=== PATIENT | female | born 1985 | race American Indian/Alaskan Native ===

== ENCOUNTER 2016-11-28 04:21 | Inpatient (IN) | payer MEDICAID ==
[2016-11-28] MEDS ORDERED: ePHEDrine SULFATE IV PRN (05:08)
[2016-11-28] MEDS ORDERED: BRETHINE IVP PRN (05:08)
[2016-11-28] MEDS ORDERED: MINERAL OIL PO PRN (05:08)
[2016-11-28] MEDS ORDERED: ZOFRAN IV PRN (05:08)
[2016-11-28] MEDS ORDERED: NARCAN 0.4 MG/1 ML IV PRN (05:08)
[2016-11-28] MEDS ORDERED: SUBLIMAZE IV PRN (05:08)
[2016-11-28] MEDS ORDERED: BRETHINE SUB-Q PRN (05:08)
--- NOTE | 2016-11-28 05:15 | History and Physical Report ---
History of Present Illness Date of examination: 11/28/16 Date of admission: 11/28/2016 Chief complaint: contractions and vaginal bleeding History of present illness: 31 yo , TAO 11/28/2016 (LMP), 40w0d, A positive, Rubella immune, GBS negative presents in active labor. 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 Anemia taking FeS04. 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 denies: abnormal PAP smear, chlamydia, gonorrhea, hepatitis B, hepatitis C, HIV, syphilis, trichomonas Family/Genetic History: none Social history: no significant social history, lives with family, full code. denies: smoking, alcohol abuse, prescription drug abuse, IV drug use - Obstetrical History Expected Date of Delivery: 11/28/16 Actual Gestation: 40 Week(s) 0 Day(s) : 6 Para: 5 Hx # Term Pregnancies: 5 Number of Pregnancies: 0 Spontaneous Abortions: 0 Induced : 0 Number of Living Children: 5 #1 Infant Gender: Male year: 2,007 Birthweight: 3.005 kg Method of Delivery: Vaginal Gestational age at delivery: 40 Complications: none #2 Gender: Female year: 2,009 Birthweight: 3.175 kg Method of Delivery: Vaginal Gestational age at delivery: 40 Complications: none #3 Gender: Female year: 2,013 Birthweight: 3.629 kg Method of Delivery: Vaginal Gestational age at delivery: 40 Complications: none #4 Gender: Female year: 2,014 Birthweight: 3.175 kg Method of Delivery: Vaginal Gestational age at delivery: 40 Complications: none #5 Infant Gender: Female year: 2,015 Birthweight: 3.175 kg Method of Delivery: Vaginal Gestational age at delivery: 40 Complications: none Medications and Allergies Allergies Allergy/AdvReac Type Severity Reaction Status Date / Time No Known Allergies Allergy Unverified 11/28/16 04:21 Review of Systems Eyes: normal appearance Cardiovascular: no chest pain, no shortness of breath Breasts: normal Gastrointestinal: no nausea, no vomiting, no diarrhea, no constipation Genitourinary: normal appearance, vaginal bleeding (Bloody show), contractions, no leakage of fluid, no genital sores Integumentary: no rash, no sores, no lesions - Vital Signs Vital signs: Vital Signs Pulse Pulse Ox 76 95 11/28/16 04:30 11/28/16 04:30 Temp Pulse Resp BP Pulse Ox 108 H 182/104 96 11/28/16 05:05 11/28/16 05:03 11/28/16 05:05 - Physical Exam Breasts: Positive: normal Cardiovascular: Regular rate Lungs: Positive: Normal air movement Abdomen: Positive: normal appearance Genitourinary (Female): Positive: normal external genitalia, normal perenium Vulva: both: normal Vagina: Positive: normal moisture Uterus: Positive: enlarged (gravid) Anus/Rectum: Positive: normal perianal skin Extremities: Positive: normal Deep Tendon Reflex Grade: Normal +2 - Obstetrical FHR: category 1 Uterine Contraction Monitor Mode: External Cervical Dilatation: 6 (per admitting RN) Cervical Effacement Percentage: 90 station: -2 Uterine Contraction Frequency (min): 2-3 Uterine Contraction Pattern: Regular Uterine Tone Measurement Phase: Resting Uterine Contraction Intensity: Moderate Results All other labs normal. Assessment and Plan A: Term IUP at 40w0d Late & limited care Iron deficiency Anemia HSV2 IgG Serology GBS negative Category 1 tracing Spontaneous labor Elevated blood pressure on admission P: Admit to L&D Routine and PIH labs May have IV pain med/epidural PRN Anticipate
[2016-11-28 05:32] LABS: Hematocrit 33.8 % (30.3-42.9); Hemoglobin 11.6 gm/dl (10.1-14.3); Mean Corpuscular HGB Conc 34 % (30-34); Mean Corpuscular Hemoglobin 28 pg (28-32); Mean Corpuscular Volume 82 fl (79-97); Platelet Count 200 K/mm3 (140-440); Red Blood Count 4.11 M/mm3 (3.65-5.03); Red Cell Distribution Width 15.9 % (13.2-15.2); White Blood Count 9.8 K/mm3 (4.5-11.0)
[2016-11-28] MEDS ORDERED: XYLOCAINE 2% INFILTRATI ONE (05:40)
[2016-11-28] MEDS: PITOCin/NS 20 UNIT/1000ML DRIP 1,000 ML IV SCH ×2 (05:49→07:05)
[2016-11-28] MEDS ORDERED: DULCOLAX PR PRN (05:58)
[2016-11-28] MEDS ORDERED: TYLENOL PO PRN (05:58)
[2016-11-28] MEDS ORDERED: MILK OF MAGNESIA PO PRN (05:58)
[2016-11-28] MEDS ORDERED: LANSINOH TP PRN (05:58)
[2016-11-28] MEDS ORDERED: DERMOPLAST TP PRN (05:58)
[2016-11-28] MEDS ORDERED: TUCKS PAD TP PRN (05:58)
[2016-11-28] MEDS ORDERED: BENADRYL PO PRN (05:58)
[2016-11-28] MEDS ORDERED: SODIUM CHLORIDE FLUSH SYRINGE 10 ML IV NR (06:00)
[2016-11-28] MEDS ORDERED: LACTATED RINGERS 1,000 ML IV SCH (06:00)
--- NOTE | 2016-11-28 06:07 | Procedure Note ---
OB Delivery Note - Delivery Date of Delivery: 11/28/16 (05:46) Surgeon: ELICEO DE ANDA (EVELYN) Estimated blood loss: 100cc - Vaginal Delivery presentation: vertex Delivery position: OA Intrapartum events: none Delivery induction: none Delivery augmentation: rupture of membranes Delivery monitor: external FHT, external uterine Route of delivery: Delivery placenta: spontaneous (05:49) Delivery cord: 3 umbilical vessels Episiotomy: none Delivery laceration: none Anesthesia: none Delivery comments: viable female , PARESH, over intact perineum at 05:46 with NICU and RT present for meconium stained fluid. Immediate strong lusty cry and infant placed [id number] on maternal abdomen. Delayed cord clamping, then cut by FOB. Spontaneous carrasco delivery of placenta at 05:49. Appears intact. 3VC. FF@ U-2. bleeding small. No lacerations or tears. Infant and mother left in stable condition in L&D. Blood pressures elevated since entering hospital, PIH labs pending. Will continue to monitor - Infant A at 1 minute: 8 at 5 minutes: 9 Infant Gender: Female (3442 grams, 7lbs 9oz, 21")
[2016-11-28] MEDS: NORCO 5/325 PO PRN ×2 (07:18→12:41)
[2016-11-28] MEDS: MOTRIN PO SCH ×3 (07:18→18:30)
[2016-11-28 07:25] LABS: Alanine Aminotransferase 6 units/L (7-56); Lactate Dehydrogenase 195 units/L (91-180)
[2016-11-28 07:27] LABS: Bilirubin,Urine NEG (Negative); Blood,Urine NEG (Negative); Ketones,Urine TR mg/dL (Negative); Leukocyte Esterase,Urine NEG (Negative); Mucus,Urine 1+ /HPF; Nitrite,Urine NEG (Negative); Protein,Urine <15 mg/dL mg/dL (Negative); Urobilinogen,Urine < 2.0 mg/dL (<2.0)
[2016-11-28 19:23] LABS: Hematocrit 28.9 % (30.3-42.9); Hemoglobin 9.7 gm/dl (10.1-14.3)
[2016-11-29] MEDS: MOTRIN PO SCH ×3 (00:06→13:24)
--- NOTE | 2016-11-29 09:53 | Progress Note ---
Assessment and Plan A: PPD#1 s/p Bottlefeeding Stable P: Routine PP care Discharge home today Subjective - Subjective Date of service: 11/29/16 Principal diagnosis: Interval history: 31 yo , TAO 11/28/2016 (LMP), 40w0d, A positive, Rubella immune, GBS negative presents in active labor with 11/28/2016 Patient reports: appetite normal, voiding normally, pain well controlled, flatus , ambulating normally : doing well, bottle feeding Objective - Vital Signs Latest vital signs: Vital Signs Temp Pulse Pulse Resp BP 11/29/16 08:37 98.8 F 81 20 137/79 11/29/16 00:00 98.0 F 70 20 137/72 11/28/16 15:55 98.5 F 72 18 124/78 11/28/16 11:31 98.3 F 71 18 137/87 Intake and Output 11/28/16 11/29/16 11/29/16 22:59 06:59 14:59 Intake Total 740 480 Output Total 400 Balance 340 480 Intake: Oral 740 480 Output: Urine 400 Void 400 Other: Total, Intake Amount 240 240 Total, Output Amount 400 # Voids Void 1 1 - Exam Breasts: Present: normal Cardiovascular: Present: Regular rate Lungs: Present: Normal air movement Vulva: both: normal (scant rubra lochia, no clots) Uterus: Present: firm, fundal height below umbilicus (-1) Extremities: Present: normal Deep Tendon Reflex Grade: Normal +2 - Labs Labs: Abnormal lab results 11/28/16 Range/Units 19:14 Hgb 9.7 L (10.1-14.3) gm/dl Hct 28.9 L (30.3-42.9) %
--- NOTE | 2016-11-29 09:55 | Discharge Summary ---
Providers - Providers Date of Admission: 11/28/16 05:13 Date of discharge: 11/29/16 Attending physician: MAXINE MONTIEL MD Primary care physician: MAXINE MONTIEL MD Hospitalization Reason for admission: active labor, IUP at term Delivery: Procedure details: see delivery note Episiotomy: none Laceration: none Other procedures: none complications: none Discharge diagnosis: IUP at term delivered baby: female Condition at discharge: Good Disposition: DISCHARGED TO HOME OR SELFCARE Plan - Provider Discharge Summary Activity: routine, no sex for 6 weeks, no heavy lifting 4 weeks, no strenuous exercise Diet: routine Instructions: routine Additional instructions: [] Smoking cessation referral if applicable(refer to patient education folder for contact #) [] Refer to [facility]'s [facility] Booklet Call your doctor immediately for: * Fever > 100.5 * Heavy vaginal bleeding ( >1 pad per hour) * Severe persistent headache * Shortness of breath * Reddened, hot, painful area to leg or breast * Drainage or odor from incision. * Keep incision clean and dry at all times and follow doctor's instructions regarding bathing/showering - Follow up plan Follow up: ELICEO DE ANDA, EVELYN [Advanced Practice Nurse] - 6 Weeks
[2016-11-29 16:51] VITALS: BP 139/81
== END 2016-11-29 18:25 | disposition home or self-care (01) | DRG 775 ==
LOC: TRG 04:21 → LD 05:13 → OB 08:52
PROVIDERS: ADMIT Obstetrics & Gynecology; ATTEND Obstetrics & Gynecology
PROC: 10907ZC Drainage of Amniotic Fluid, Therapeutic from Products of Conception, Via Natural or Artificial Opening (ICD-10-PCS; principal; 2016-11-28)
PROC: 10E0XZZ Delivery of Products of Conception, External Approach (ICD-10-PCS; principal; 2016-11-28)
DX: O77.0 Labor and delivery complicated by meconium in amniotic fluid (principal); O99.02 Anemia complicating childbirth; D50.9 Iron deficiency anemia, unspecified; Z3A.40 40 weeks gestation of pregnancy; Z37.0 Single live birth; O09.30 Supervision of pregnancy with insufficient antenatal care, unspecified trimester; O75.89 Other specified complications of labor and delivery; R03.0 Elevated blood-pressure reading, without diagnosis of hypertension
CPT/HCPCS: 36415; 81001; 82565; 83615; 84450; 84460; 84550; 85014; 85018; 85027; 86850; 86900; 86901; 99211; G0463; J2590; J3010; J7120

== ENCOUNTER 2019-02-05 06:43 | Inpatient (IN) | payer MEDICAID ==
--- NOTE | 2019-02-05 08:42 | History and Physical Report ---
History of Present Illness Date of examination: 02/05/19 Date of admission: 02/05/19 07:48 Chief complaint: contractions History of present illness: This is a 33 yo at 38 weeks. She is a patient of [facility]. She has a hx of cHTN on labetolol 100 mg po bid. She came in this am c/o contractions every 3 min. She was noted to be 5cm and admitted to L &D. hx of HSV2 on meds. 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 Social history: no significant social history - Obstetrical History Expected Date of Delivery: 03/16/19 Actual Gestation: 34 Week(s) 3 Day(s) : 7 Para: 6 Hx # Term Pregnancies: 6 Number of Pregnancies: 0 Spontaneous Abortions: 0 Induced : 0 Number of Living Children: 6 Medications and Allergies Allergies Allergy/AdvReac Type Severity Reaction Status Date / Time No Known Allergies Allergy Unverified 11/28/16 04:21 Active Meds: Active Medications Butorphanol Tartrate (Stadol) 2 mg IV Q2H PRN PRN Reason: Pain , Severe (7-10) Ephedrine Sulfate (Ephedrine Sulfate) 10 mg IV Q2M PRN PRN Reason: Hypotension Fentanyl (Sublimaze) 100 mcg IV Q2H PRN PRN Reason: Labor Pain Ampicillin Sodium (Polycillin/Ns 2 Gm/100 Ml) 2 gm in 100 mls @ 100 mls/hr IV ONCE ONE; Protocol Stop: 02/05/19 09:15 Ampicillin Sodium (Ampicillin/Ns 1 Gm/50 Ml) 1 gm in 50 mls @ 100 mls/hr IV Q4HR SONJA; Protocol Lactated Ringer's (Lactated Ringers) 1,000 mls @ 125 mls/hr IV DIRECT SONJA Oxytocin/Sodium Chloride (Pitocin/Ns 20 Unit/1000ml Drip) 20 units in 1,000 mls @ 125 mls/hr IV DIRECT SONJA Oxytocin/Sodium Chloride (Pitocin/Ns 30 Unit/500ml) 30 units in 500 mls @ 0 mls/hr IV TITR SONJA; Protocol Mineral Oil (Mineral Oil) 30 ml PO QHS PRN PRN Reason: Constipation Ondansetron HCl (Zofran) 4 mg IV Q8H PRN PRN Reason: Nausea And Vomiting Terbutaline Sulfate (Brethine) 0.25 mg SUB-Q ONCE PRN PRN Reason: Hyperstimulation/Hypertonicity Terbutaline Sulfate (Brethine) 0.25 mg IVP ONCE PRN PRN Reason: Hyperstimulation/Hypertonicity Review of Systems All systems: negative - Vital Signs Vital signs: Vital Signs Pulse BP 83 151/106 02/05/19 07:06 02/05/19 07:06 Temp Pulse Resp BP Pulse Ox 82 148/94 02/05/19 07:11 02/05/19 07:11 - Physical Exam Breasts: Positive: normal Cardiovascular: Regular rate, Normal S1 Lungs: Positive: Clear to auscultation, Normal air movement Abdomen: Positive: normal appearance, soft, normal bowel sounds. Negative: distention, tenderness, guarding Genitourinary (Female): Positive: normal external genitalia, normal perenium Vulva: both: normal Vagina: Positive: normal moisture Uterus: Positive: normal size Anus/Rectum: Positive: normal perianal skin Extremities: Positive: normal Deep Tendon Reflex Grade: Normal +2 - Obstetrical Cervical Dilatation: 8 Cervical Effacement Percentage: 100 station: 1 Uterine Contraction Pattern: Regular Uterine Tone Measurement Phase: Contraction Uterine Contraction Intensity: Moderate Results Result Diagrams: 02/05/19 Unknown 02/05/19 Unknown All other labs normal. Assessment and Plan A/P HD#1 Active labor GBS unknown -started amp offer epidural chtn will continue labetol and draw PIH labs close attention to maternal and status IV pain meds until epidural expect vaginal delivery
[2019-02-05] MEDS: LACTATED RINGERS 1,000 ML IV SCH ×2 (08:45→09:29)
[2019-02-05 08:51] LABS: Hematocrit 29.2 % (30.3-42.9); Mean Corpuscular HGB Conc 34 % (30-34); Mean Corpuscular Volume 81 fl (79-97); Platelet Count 214 K/mm3 (140-440); Red Blood Count 3.59 M/mm3 (3.65-5.03); Red Cell Distribution Width 15.1 % (13.2-15.2)
[2019-02-05 08:55] LABS: Bilirubin,Urine NEG (Negative); Blood,Urine NEG (Negative); Color,Urine Yellow (Yellow); Mucus,Urine 2+ /HPF; Protein,Urine <15 mg/dL mg/dL (Negative); RBC,Urine < 1.0 /HPF (0.0-6.0)
[2019-02-05] MEDS ORDERED: STADOL IV PRN (09:00)
[2019-02-05] MEDS ORDERED: SUBLIMAZE IV PRN (09:00)
[2019-02-05] MEDS ORDERED: MINERAL OIL PO PRN (09:00)
[2019-02-05] MEDS ORDERED: BRETHINE IVP PRN (09:00)
[2019-02-05] MEDS ORDERED: ZOFRAN IV PRN ×2 (09:00→11:00)
[2019-02-05] MEDS ORDERED: PITOCin/NS 20 UNIT/1000ML DRIP 20 UNITS/1,000 ML BAG IV SCH ×2 (09:00→10:00)
[2019-02-05] MEDS ORDERED: PITOCin/NS 30 UNIT/500ML 30 UNITS/500 ML BAG IV SCH (09:00)
[2019-02-05] MEDS ORDERED: BRETHINE SUB-Q PRN (09:00)
[2019-02-05] MEDS ORDERED: AMPICILLIN/NS 2 GM/100 ML 2 GM/100 ML BAG IV NR (09:00)
[2019-02-05 09:01] LABS: Alanine Aminotransferase 8 units/L (7-56); Uric Acid 5.2 mg/dL (3.5-7.6)
--- NOTE | 2019-02-05 10:10 | Procedure Note ---
OB Delivery Note - Delivery Date of Delivery: 02/05/19 Surgeon: ELEUTERIO SERRANO Estimated blood loss: 200cc - Vaginal Delivery presentation: vertex Delivery position: OA Intrapartum events: precipitous labor- <3hr Delivery augmentation: rupture of membranes, pitocin Route of delivery: Delivery placenta: spontaneous Delivery cord: 3 umbilical vessels Episiotomy: none Delivery laceration: none Anesthesia: none Delivery comments: Patient was noted to be c/c +2 and commenced to pushing a viable female at 0952. The shoulders were easily delivered. Suctioned nasopharynx and oropharynx at the perineum. The baby placed on mothers chest. Apgars 8 and 8. The cord was clamped and cut after 1 min of pulsation. The placenta delivered intact at 0956. Weight 7 pounds 6 oz. No lacerations noted. EBL 200 cc. Patient bonding with baby. - A at 1 minute: 8 at 5 minutes: 8 Gender: Female (7 pounds 6 oz)
[2019-02-05] MEDS ORDERED: NORCO 5/325 PO PRN (11:00)
[2019-02-05] MEDS ORDERED: SODIUM CHLORIDE FLUSH SYRINGE 10 ML IV PRN (11:00)
[2019-02-05] MEDS ORDERED: BENADRYL PO PRN (11:00)
[2019-02-05] MEDS ORDERED: TUCKS PAD TP PRN (11:00)
[2019-02-05] MEDS ORDERED: PHENERGAN PO PRN (11:00)
[2019-02-05] MEDS ORDERED: TORADOL IV PRN (11:00)
[2019-02-05] MEDS ORDERED: TYLENOL PO PRN (11:00)
[2019-02-05] MEDS ORDERED: LANSINOH TP PRN (11:00)
[2019-02-05] MEDS ORDERED: PERCOCET 5/325 PO PRN (11:00)
[2019-02-05] MEDS ORDERED: PHENERGAN PR PRN (11:00)
[2019-02-05] MEDS ORDERED: IBUPROFEN PO ONE (13:45)
[2019-02-05] MEDS: IBUPROFEN PO SCH ×2 (13:49→22:26)
[2019-02-05] MEDS ORDERED: AMPICILLIN/NS 1 GM/50 ML 1 GM/50 ML BAG IV SCH (14:00)
[2019-02-05] MEDS: PRENATAL VITAMIN PO SCH (15:44)
[2019-02-05] MEDS: SENOKOT S PO SCH (15:44)
[2019-02-05] MEDS: COLACE PO SCH ×2 (15:45→22:25)
[2019-02-05] MEDS ORDERED: MILK OF MAGNESIA PO PRN (22:00)
[2019-02-05] MEDS ORDERED: NORMODYNE PO SCH (22:00)
[2019-02-05] MEDS ORDERED: DULCOLAX PR PRN (22:00)
[2019-02-05] MEDS: NORMODYNE PO SCH (22:26)
[2019-02-05 22:58] LABS: Hematocrit 26.3 % (30.3-42.9)
[2019-02-06] MEDS: SENOKOT S PO SCH ×2 (04:38→07:23)
[2019-02-06] MEDS ORDERED: BOOSTRIX IM ONE (06:00)
[2019-02-06] MEDS: NORMODYNE PO SCH ×2 (09:36→22:38)
[2019-02-06] MEDS: COLACE PO SCH (09:36)
[2019-02-06] MEDS: PRENATAL VITAMIN PO SCH (09:37)
[2019-02-06] MEDS ORDERED: M-M-R II VACCINE SUB-Q ONE (11:00)
--- NOTE | 2019-02-06 13:41 | Progress Note ---
Assessment and Plan PPD 1 s/p . Doing well. Patient requesting discharge on today. Subjective - Subjective Date of service: 02/06/19 Patient reports: appetite normal, voiding normally, pain well controlled, ambulating normally : doing well Objective - Vital Signs Latest vital signs: Vital Signs Temp Pulse Resp BP BP Pulse Ox 02/06/19 08:38 98.4 F 73 16 145/92 99 02/05/19 22:27 129/86 98 02/05/19 22:26 74 129/86 02/05/19 21:06 98.6 F 80 18 129/81 95 02/05/19 17:26 19 02/05/19 17:20 98.8 F 72 20 165/82 02/05/19 16:05 185/102 02/05/19 13:49 20 Intake and Output 02/05/19 02/06/19 02/06/19 22:59 06:59 14:59 Intake Total 800 Output Total 900 Balance -100 Intake: Oral 800 Output: Urine 900 Void 900 Other: Total, Intake Amount 480 Total, Output Amount 900 # Voids Void 3 - Exam Breasts: Present: deferred Cardiovascular: Present: Regular rate, Normal S1, Normal S2 Lungs: Present: Clear to auscultation, Normal air movement Abdomen: Present: normal appearance, soft, normal bowel sounds Vulva: both: normal Uterus: Present: normal, firm Extremities: Present: normal Deep Tendon Reflex Grade: Normal +2 - Labs Labs: Abnormal lab results 02/05/19 Range/Units 22:38 Hgb 9.0 L (10.1-14.3) gm/dl Hct 26.3 L (30.3-42.9) %
--- NOTE | 2019-02-06 13:45 | Discharge Summary ---
Providers - Providers Date of Admission: 02/05/19 07:48 Date of discharge: 02/06/19 Attending physician: ELEUTERIO SERRANO MD Primary care physician: ELEUTERIO SERRANO MD Hospitalization Delivery: Episiotomy: none Discharge diagnosis: IUP at term delivered baby: female Condition at discharge: Good Disposition: DC-01 TO HOME OR SELFCARE Plan - Discharge Medications Prescriptions: Ferrous Sulfate [Feosol 325 MG tab] 325 mg PO BID #30 tablet Ibuprofen [Motrin] 600 mg PO Q8H PRN #30 tablet PRN Reason: Pain Labetalol [Normodyne TAB] 100 mg PO BID #60 tablet oxyCODONE /ACETAMINOPHEN [Percocet 5/325] 1 tab PO Q6HR PRN #10 tablet PRN Reason: Pain - Provider Discharge Summary Activity: routine, no sex for 6 weeks, no heavy lifting 4 weeks, no strenuous exercise Diet: routine Instructions: routine Additional instructions: [] Smoking cessation referral if applicable(refer to patient education folder for contact #) [] Refer to [facility]'s [facility] Booklet Call your doctor immediately for: * Fever > 100.5 * Heavy vaginal bleeding ( >1 pad per hour) * Severe persistent headache * Shortness of breath * Reddened, hot, painful area to leg or breast * Drainage or odor from incision. * Keep incision clean and dry at all times and follow doctor's instructions regarding bathing/showering - Follow up plan Follow up: ELEUTERIO SERRANO MD [Primary Care Provider] - 6 Weeks
[2019-02-06] MEDS: IBUPROFEN PO SCH (15:53)
[2019-02-07] MEDS: IBUPROFEN PO SCH ×2 (00:31→12:30)
[2019-02-07] MEDS: COLACE PO SCH (00:51)
[2019-02-07] MEDS: SENOKOT S PO SCH (00:51)
--- NOTE | 2019-02-07 11:10 | Event Note ---
Date: 02/07/19 Pt was kept an additional day due to elevated blood pressure. BP now more stable with 140s/80s. Will proceed with discharge today.
[2019-02-07] MEDS: NORMODYNE PO SCH (12:00)
[2019-02-07] MEDS: PRENATAL VITAMIN PO SCH (12:30)
[2019-02-07 17:23] VITALS: BP 152/95
== END 2019-02-07 18:55 | disposition home or self-care (01) | DRG 774 ==
LOC: TRG 06:43 → LD 07:48 → OB 15:32
PROVIDERS: ADMIT Obstetrics & Gynecology; ATTEND Obstetrics & Gynecology
PROC: 10E0XZZ Delivery of Products of Conception, External Approach (ICD-10-PCS; principal; 2019-02-05)
DX: O10.92 Unspecified pre-existing hypertension complicating childbirth (principal); O98.32 Other infections with a predominantly sexual mode of transmission complicating childbirth; A60.00 Herpesviral infection of urogenital system, unspecified; O62.3 Precipitate labor; Z3A.38 38 weeks gestation of pregnancy; Z37.0 Single live birth
CPT/HCPCS: 36415; 59025; 81001; 82565; 83615; 84450; 84460; 84550; 85014; 85018; 85027; 86592; 86850; 86900; 86901; 96360; 96361; 96365; 96366; 96374; G0378; A6250; J0290; J0595; J2590; J7120